=== PATIENT | female | born 1960 | race Caucasian/White ===

== ENCOUNTER → 2018-01-26 | Outpatient (CLI) | payer BC ==
[~2018-01-26] MED LIST: BUPXL150 PO; CETI10CA8 PO; FEXO180T74 PO; HYDR10 PO
--- NOTE | 2018-01-26 12:50 | RADIOLOGY IMAGING REPORT ---
FACILITY: [facility] PATIENT NAME: Gertrudis Keys : 1960 MR: [id number] V: [id number] EXAM DATE: ORDERING PHYSICIAN: STEEVN SANCHEZ TECHNOLOGIST: Location: [facility] Patient: Gertrudis Keys : 1960 Visit/Account:[id number] Date of Sevice: 01/26/2018 GALLBLADDER HISTORY: Right lower quadrant pain x2 weeks, abdomen pain and bloating COMPARISON: None. FINDINGS: Gallbladder: There is a large mobile shadowing gallstone measuring 2.1 cm in diameter. The gallbladd er wall measured 2.6 cm in thickness. There is no evidence of pericholecystic fluid. Is a negative Gauthier sign by technologist notation Liver: Negative. Common duct: Normal, 4.3 mm diameter. Pancreas: Partially obscured by bowel, visualized aspects unremarkable. Right kidney: Right kidney measures 10.2 cm in length. There two cysts in the right kidney one in th e mid right kidney measures 3.1 cm in diameter and one in the inferior pole measures 1.4 cm in diamet er Upper abdominal aorta and IVC: Patent. Ascites: None visualized. IMPRESSION: There is a large 2.1 cm mobile gallstone with no evidence of gallbladder wall thickening pericholecys tic fluid or biliary ductal dilatation Two right renal cysts largest measuring 3.1 cm in diameter Report Dictated By: Romy Carias MD at 01/26/2018 12:44 PM Report E-Signed By: Romy Carias MD at 01/26/2018 12:46 PM WSN:[email or web address]
--- NOTE | 2018-01-26 12:54 | RADIOLOGY IMAGING REPORT ---
FACILITY: [facility] PATIENT NAME: Gertrudis Keys : 1960 MR: [id number] V: [id number] EXAM DATE: ORDERING PHYSICIAN: STEVEN SANCHEZ TECHNOLOGIST: Location: [facility] Patient: Gertrudis Keys : 1960 Visit/Account:[id number] Date of Sevice: 01/26/2018 Exam type: RIGHT LOWER QUADRANT History: Right lower quadrant pain x2 weeks Comparison: None. Findings: Multiple images of the right lower quadrant were obtained. There was a 1.1 [address] in diameter tubular st ructure in the right lower quadrant although this appeared to demonstrate peristalsis and was noncomp ressible. This may simply represent a loop of bowel appendix was not definitively seen. There is no demonstration of free fluid in the right lower quadrant. The patient did not experience pain during the examination IMPRESSION: 1. The appendix is not definitively seen. If acute appendicitis remains a strong clinical concern a CT of abdomen pelvis is recommended Report Dictated By: Romy Carias MD at 01/26/2018 12:46 PM Report E-Signed By: Romy Carias MD at 01/26/2018 12:49 PM WSN:[email or web address]
== END ==
LOC: US 10:21
PROVIDERS: ATTEND Nurse Practitioner Family
DX: K80.20 Calculus of gallbladder without cholecystitis without obstruction (principal); N28.1 Cyst of kidney, acquired
CPT/HCPCS: 76705

== ENCOUNTER → 2018-02-17 | Day surgery (SDC) | payer BC ==
[~2018-02-17] VITALS: Ht 177.8 cm; Wt 79.4 kg
[~2018-02-17] MED LIST changes: +ACETAMINOPHEN 500 MG TAB PO ONE; +ASPI-1471 PO; +CELE-1 PO; +DEXAMETHASONE SOD PHOS 10MG/ML ONE; +DOCU-416 PO; +FAMOTIDINE 20 MG TAB PO ONE; +GLUC100026 PO; +HYDR-2966 PO; +HYDROmorphone HCL 2 MG/ML SDV ONE; +INDOCYANINE GREEN 25 MG VIAL IVP ONE; +KETOROLAC 30 MG/ML VIAL ONE; +LEVOFLOXACIN/D5W*500 MG/100 ML 100 ML IVPB ONE; +LIDOCAINE/SOD BICARB 8.4% SYR ID ONE; +MIDAZOLAM 2 MG/2 ML VIAL IVP PRN; +NORMOSOL R SOLN(*) 1000 ML BAG 1,000 ML IV PRN; +ONDANSETRON 4 MG/2 ML VIAL ONE; +OXYC-854 PO; +PREGABALIN 150 MG CAPSULE PO ONE; +PROPOFOL EMUL(*) 10MG/ML 20 ML 120 ML ONE; +ROCURONIUM BROM 10 MG/ML 10 ML ONE; +ROPIVACAINE 0.5% 20 ML VIAL ONE; +SCOP1PAT16 TD; +SCOPOLAMINE 1.5 MG PATCH TD ONE; +SUGAMMADEX SOD 200 MG/2 ML SDV ONE; +[UNRECOGNIZED DRUG - CODE] TP; +fentaNYL CITR 100 MCG/2 ML AMP ONE
[2018-02-17 13:16] LABS: PLATELET COUNT, AUTOMATED 415 K/uL (150-450)
[2018-02-17 14:04] VITALS: BP 121/78
--- NOTE | 2018-02-17 15:58 | Short(Outpt) Discharge Summary ---
Discharge Summary Reason for Hosp/Final Diag: (1) Cholelithiasis Status: Chronic Hospital Course & Plan: Robotic cholecystectomy completed without problems. Departure Discharge to: Home, Self Care Discharge Instructions Home Meds Active Scripts Docusate Sodium (COLACE) 100 Mg Capsule, 1 CAP PO BID, #30 CAP 0 Refills TAKE WITH A FULL GLASS OF WATER Prov:VANESSA VIDES MD 02/17/18 Oxycodone Hcl/Acet 5/325 Mg (ENDOCET 5-325 TABLET) 1 Each Tablet, 1-2 TAB PO Q4H PRN for PAIN, #30 TAB 0 Refills Prov:VANESSA VIDES MD 02/17/18 Reported Medications Scopolamine (Scopolamine) 1 Mg/3 Day Patch.td.3, 1.[address] PATCH ON SKIN BEHIND EAR THE NIGHT BEFORE SURGERY. REMOVE 3 DAYS AFTER PLACEMENT. 02/15/18 Glucosamine Sulfate 2KCL (GLUCOSAMINE) 1,000 Mg Tablet, 1000 MG PO BID 02/04/18 Tretinoin Microspheres (RETIN-A MICRO) Unknown Strength Gel..gram., TP 02/04/18 Aspirin (ASPIR 81) 81 Mg Tablet.dr, 81 MG PO QDAY, TAB 02/04/18 Hydrochlorothiazide (HYDROCHLOROTHIAZIDE) 25 Mg Tablet, 0.5 TAB PO QDAY, TAB 02/04/18 Celecoxib (CELEBREX) 200 Mg Capsule, 200 MG PO BID, CAPSULE 02/04/18 Cetirizine Hcl (ZYRTEC) 10 Mg Capsule, 10 MG PO QDAY 12/23/12 Bupropion Hcl (Wellbutrin Xl) 150 Mg Tabcr, 150 MG PO QAM 04/14/07 Follow up Referrals: General Surgery - 03/04/18 @ Surgery, General with VANESSA VIDES MD You have a follow up appointment scheduled with Dr. Vides on 03/04/18, at 10:45am. Diet: Regular Activity: As Tolerated Special Instructions: You may remove the white surgical dressings on 02/19/18, then you can shower. After showering, leave the incisions open to air but leave the steristrips in place until they fall off on their own. Do not immerse the incisions for 2 weeks. Problem Qualifiers (1) Cholelithiasis: Cholelithiasis location: gallbladder Cholecystitis presence: without cholecystitis Biliary obstruction: without biliary obstruction Qualified Codes: K80.20 - Calculus of gallbladder without cholecystitis without obstruction VANESSA VIDES MD Feb 17, 2018 15:58
--- NOTE | 2018-02-17 16:07 | Post Operative Progress Note ---
Post Operative Progress Note Date: Feb 17, 2018 Time: 15:59 Surgeon: Elvia Dictation number: [id number] Anesthesia: GETA by Dr. Fraga Pre-Op Diagnosis: Symptomatic Cholelithiasis Post-Op Diagnosis: MAGGIE Findings: C/W dx Procedure(s): Robotic cholecystectomy Specimen Removed:(May be N/A): GB and contents Complications: None Fluids: See anesthesia record Estimated Blood Loss: Minimal Date OP Note Dictated: Feb 17, 2018 Time OP Note Dictated: 15:59 VANESSA VIDES MD Feb 17, 2018 16:07
[2018-02-17 17:03] VITALS: BP 135/85
[2018-02-17 17:15] VITALS: BP 137/78
[2018-02-17 17:30] VITALS: BP 129/77
--- NOTE | 2018-02-17 17:31 | OPERATIVE REPORT 1 ---
EVENT DATE: February 17, 2018 SURGEON: Quincy Gan MD ANESTHESIOLOGIST: Joseph Fraga MD ANESTHESIA: General endotracheal anesthesia. PREOPERATIVE DIAGNOSIS Symptomatic gallstones. POSTOPERATIVE DIAGNOSIS Symptomatic gallstones. PROCEDURE PERFORMED Robotic cholecystectomy. COMPLICATIONS None. CONDITION Stable. BLOOD LOSS Minimal. INDICATIONS This is a 58-year-old female who presented to my office with postprandial right upper quadrant abdominal pain for several weeks. She had a right upper quadrant ultrasound which revealed a 2.1 cm gallstone in the neck of her gallbladder. She was requesting to have her gallbladder removed. DESCRIPTION OF PROCEDURE The patient was brought to the operating room and placed supine on the operating table. General endotracheal anesthesia was administered, and her abdomen was prepped and draped in a sterile fashion. Timeout was completed, and I injected the infraumbilical skin with 0.5% ropivacaine plain. I made a curvilinear smiley face-type incision in the infraumbilical rim and dissected through the dermis and subcutaneous fat. I identified the midline fascia and made a vertical incision in the midline fascia, grasped the fascial edges with Juanita clamps, and retracted towards the ceiling. I then bluntly entered the peritoneal cavity with my finger. I placed two interrupted 0 Vicryl sutures transversely through the vertical fascial defect and inserted a 12 mm Agata robotic port in through this wound, securing it in place with sutures. I insufflated the abdomen to a pressure of 15 mmHg and inserted the robotic camera through this portion. Next, under direct visualization, I placed an 8 mm port in the right mid abdomen and two 8 mm ports in the left abdomen, one in the left mid abdomen and the second one superolateral to this in the anterior axillary line just in the subcostal area. I inspected the abdominal cavity and did not see any obvious gross abnormalities, and there were interrelated injuries. I then brought the robot in, docked it, and targeted it. I inserted the instruments, and then I scrubbed out and went to the console. I grasped the fundus of the gallbladder and retracted it towards the patient's right shoulder. I grasped the infundibulum and retracted it towards the patient's right hip. I used the hook electrocautery and majority cautery and blunt dissection to divide the peritoneum overlying the infundibulum on both the medial and lateral aspects of the gallbladder. This served to mobilize the infundibulum and open up the critical view. I stripped the peritoneum down on the subperitoneal contents and clearly identified the cystic duct and arteries. I used Firefly to confirm the cystic duct as well as I was well away from the common bile duct. I could clearly see the common bile duct even without Firefly as it was readily visible under a thin layer of peritoneum with little fat around it. After I cleaned off the cystic duct and artery, I placed clips on the artery proximally and distally and placed clips on the duct at the infundibulum-cystic duct junction and three clips distally, but away from the common bile duct. I then divided the artery and duct between the clips with scissors. I then divided the posterior attachment to the gallbladder and it from the gallbladder fossa with hook electrocautery. Then, when the gallbladder was completely from the gallbladder fossa, it was placed in a surgical specimen retrieval bag and removed from the abdomen through the umbilical port site. I then inspected the entire right upper quadrant, including the gallbladder fossa as well as the cystic duct and artery stumps. There was no bile leak or bleeding. The clips were in great position. It was completely dry at the end of this case. I then removed the robotic instruments, undocked the robot, desuffated the abdomen, and removed all the ports. I then closed the midline fascia with another [id number] Vicryl suture and tied all three of these down with good reapproximation of the fascial edges with no remaining fascial defect. Skin at each port site was closed with 4-0 Monocryl subcuticular suture. The skin was cleaned and dried, and Steri-Strips were applied, followed by sterile surgical dressings. The patient was awakened, extubated in the operating room, and transported to the recovery room in stable condition having tolerated the procedure without any apparent problems. MIC
[2018-02-17 17:45] VITALS: BP 127/82
[2018-02-17 17:47] VITALS: BP 119/87
== END ==
LOC: OR 01:51
PROVIDERS: ATTEND Surgery
DX: K80.80 Other cholelithiasis without obstruction (principal)
CPT/HCPCS: 36415; 47562; 85025; J1100; J1170; J1885; J1956; J2250; J2405; J2704; J2795; J3010; S2900; 88304